=== PATIENT | male | born 1965 | race Caucasian/White ===

== ENCOUNTER → 2019-05-28 | Outpatient (REF) | LOC: M LAB LCGH 14:29 | PROVIDERS: ATTEND Physician Assistant | DX: D48.5 Neoplasm of uncertain behavior of skin (principal) ==

== ENCOUNTER → 2022-03-06 | Outpatient (CLI) | payer OTHER | LOC: M RAD 15:13 | PROVIDERS: ATTEND Physician Assistant | DX: J32.8 Other chronic sinusitis (principal) ==

== ENCOUNTER → 2022-06-20 | Outpatient (REF) | LOC: M PLAIMG 10:42 | PROVIDERS: ATTEND Internal Medicine | DX: M54.50 Low back pain, unspecified (principal) ==

== ENCOUNTER 2024-12-15 08:18 | Day surgery (SDC) | payer OTHER ==
[~2024-12-15] VITALS: Ht 177.8 cm; Wt 113.9 kg
[~2024-12-15 08:18] MED LIST: ATOG30TA PO; AZEL137S8 NARES; BUDE10.7 INH; DICY-61 PO; FEXO-112 PO; FLUC150T9 PO; FURO20TA2 PO; GABA-1172 PO; IMIT50TA PO; INCR1INH INH; MELO15TA28 PO; OMEP40CA5 PO; PROA1AER2 INH; TRAZ-252 PO; VONO10TA PO; ZONI100C67 PO
[2024-12-15] MEDS ORDERED: propofoL 500 MG/50 ML VIAL As Ordered ONE (09:16)
[2024-12-15] MEDS ORDERED: fentaNYL 100 MCG/2 ML INJECTION As Ordered ONE (09:17)
[2024-12-15] MEDS ORDERED: LIDOCAINE 2% 100MG/5ML SDV (FOR ANES.) As Ordered ONE (09:17)
[2024-12-15] MEDS ORDERED: GLYCOPYRROLATE INJ 0.2 MG/ML 2 ML VIAL As Ordered ONE (09:18)
[2024-12-15] MEDS ORDERED: propofoL 200 MG/20 ML VIAL As Ordered ONE (11:02)
[2024-12-15 11:55] VITALS: BP 100/62; O2SAT 96
== END 2024-12-15 12:01 | disposition home or self-care (01) ==
LOC: M OPP 08:18
PROVIDERS: ATTEND Internal Medicine Gastroenterology
DX: Z12.11 Encounter for screening for malignant neoplasm of colon (principal); D12.5 Benign neoplasm of sigmoid colon; D12.3 Benign neoplasm of transverse colon; Q43.8 Other specified congenital malformations of intestine; K64.8 Other hemorrhoids; Z80.0 Family history of malignant neoplasm of digestive organs; K31.89 Other diseases of stomach and duodenum; R14.0 Abdominal distension (gaseous); K30 Functional dyspepsia; Z98.890 Other specified postprocedural states; Z79.51 Long term (current) use of inhaled steroids; Z79.899 Other long term (current) drug therapy; J45.909 Unspecified asthma, uncomplicated; Z87.891 Personal history of nicotine dependence
CPT/HCPCS: 43239; 45385; 88305; J1596; J3010

== ENCOUNTER → 2025-08-03 | Outpatient (CLI) | payer OTHER ==
[2025-08-03 11:37] LABS: ALT/SGPT 14.0 U/L (7.0-40); AST/SGOT 23.0 U/L (<34); CALCIUM LEVEL 8.4 MG/DL (8.5-10.1); CARBON DIOXIDE LEVEL 29.0 MMOL/L (20-31); CHLORIDE LEVEL 108.0 MMOL/L (98-107); CREATININE FOR GFR 1.04 MG/DL (0.70-1.30); GLOMERULAR FILTRATION RATE 83.8 (>56); POTASSIUM SERUM 4.1 MMOL/L (3.5-5.1); SODIUM LEVEL 145.0 MMOL/L (136-145)
== END ==
LOC: M LAB 10:12
PROVIDERS: ATTEND Nurse Practitioner Family
DX: B35.1 Tinea unguium (principal); Z51.81 Encounter for therapeutic drug level monitoring